=== PATIENT | female | born 1990 | race Caucasian/White ===

== ENCOUNTER 2025-01-17 14:10 | Emergency (ER) | payer OTHER, SELFPAY ==
[2025-01-17 14:11] VITALS: BP 126/76
--- NOTE | 2025-01-17 14:45 | ED.GENMED ---
Addendum entered and electronically signed by Rafael Munroe DO 01/17/25 18:22:
Patient was evaluated with resident physician. I obtained my own independent history and physical exam. I otherwise agree with his documentation as per the chart.
34-year-old female presents to the ER for treatment of severe left-sided flank pain which has has been ongoing for the past few days with associated dysuria and urinary frequency. She does have a prior history of urinary tract infections and kidney
stones, although she admittedly has not had any evaluation for kidney stones in the last 10 years. Patient denies any fevers or chills. She has been on Macrobid for the last 48 hours and states that her symptoms seem to improve, however had
recurrent pain today. She describes it to be sharp in her lower back and not necessarily associated with activity. No vomiting. Vital signs reviewed, patient is awake, alert, appears no acute distress, abdomen is soft and nontender, positive left
CVA tenderness, GCS is 15. I reviewed with patient all test results including relatively unremarkable urinalysis. Patient had declined CT imaging that have been discussed by resident physician and myself. She was amenable to ultrasound
evaluation-no evidence for acute hydronephrosis although she does have bilateral renal calculi. I discussed with her limitation of diagnosis without having CT to confirm or refute presence of distal ureteral stone, however given there is absence of
hydro nephrosis on the ultrasound this is somewhat reassuring. Additionally reassuring her blood count is normal, she is afebrile and appears overall well. I discussed with patient potential treatment plan including change of antibiotics to
antibiotic appropriate for pyelonephritis. I encourage patient to strain her urine to see if there is a small stone that may be related to her symptoms. I also encourage patient to establish care with local urology. Patient agrees with plan to
follow-up with her primary care physician. She expressed understanding of strict return precautions and had no questions prior to that department.
Original Note:
History of Present Illness
General
Chief Complaint: Back Pain
Source: patient
Time Seen by Provider: 01/17/25 14:25
History of Present Illness
History of Present Illness:
Patient is a 34-year-old female who presents to the emergency department with complaints of left lower back pain, with pain and burning during urination. She has a history of UTIs that occurred in 2022 and 2023 and she has a history of kidney
stones. She was in her normal state of health until last weekend Monday when she started to have burning sensation during urination with groin pain and she believes she started to have left sided flank pain that was starting to be noticed. During
that time she also noticed that her urine had a darker tinge to it but there was no cloudiness, y[place] blood, or foul odor. He reached out to a medical provider via telehealth and shared her symptoms but recalls that she may have forgotten to
mention that she was having flank pain. They prescribed her nitrofurantoin and she started to take the medication and her symptoms started to improve over the course of 2 days. Unfortunately, this morning when she woke up she was having sharp pain
in her left flank along with the recurrence of her previous UTI symptoms that she thought were improving. She has also been feeling nausea during the acute pain episodes. She denies any shortness of breath, chest tightness, or palpitations.
Past History
Past History
ED Past Medical History: Other ( kidney stones) and Other ( UTIs that occurred in 2022 and 2023 treated with nitrofurantoin)
ED Past Surgical History: None
Social History
Tobacco: Non-smoker
Alcohol: Occasional
Drug: None
Employment: Employed
Review of Systems
Review of Systems
Constitutional: Reports sleep disturbance ( left-sided flank pain and suprapubic pain disturbing sleep for over 24 hours) and night sweats
EENT: Reports no symptoms
Respiratory: Reports no symptoms
Cardiac: Reports no symptoms
ABD/GI: Reports no symptoms
: Reports no symptoms
Musculoskeletal: Reports no symptoms
Skin: Reports no symptoms
Neurological: Reports no symptoms
Endocrine: Reports no symptoms
Hematologic/Lymphatic: Reports no symptoms
Psychiatric: Reports anxiety
Phy Exam
General Physical Exam
General Presentation: well appearing and moderate distress
General age: appears stated age
General Skin: warm and dry
General Habitus: normal
General Mental: alert and anxious
General Hydration: appears well hydrated
Cardiovascular Exam
Cardiovascular Exam: regular rate/rhythm, no edema, no gallop, no JVD, no murmur and normal peripheral pulses
Pulmonary Exam
Pulmonary Exam: lungs clear, no respiratory distress, no rales, chest non tender, no crackles, no rhonchi, no stridor, no wheezing and no cough
Gastrointestinal Exam
Gastrointestinal Exam: normal bowel sounds, non tender, soft, no organomegaly, no pulsatile mass, non distended and cva tenderness ( left-sided)
Musculoskeletal Exam
Musculoskeletal Exam: full ROM
Skin Exam
Skin Exam: normal color, warm/dry, no rash and no petechia
Psychiatric Exam
Psychiatric Exam: normal mood/affect
Course
Orders/Labs/Results
Orders:
Orders
01/17/25 14:51
Urinalysis Reflex To Culture Urgent
Date Specimen was Collected: 01/17/25
Time Specimen was Collected: 14:50
Urine Microscopic Reflex Cult Urgent
01/17/25 14:53
Kidney & Bladder US [US Renal With Bladder] Urgent
Comment:
Reason For Exam: Flank pain with history of kidney stones
01/17/25 15:03
0.9% Sodium Chloride 1000 ml [Nss] 1,000 ml IV BOLUS
01/17/25 15:06
Test Result ONCE
01/17/25 15:18
Beta Hcg Serum Qualitative Screen [HCG, Serum Qualitative Screen] Urgent
Complete Blood Count/No Diff Urgent
Comprehensive Metabolic Panel Urgent
Abnormal Lab Results
01/17/25 01/17/25
14:51 15:18
MCH 32.0 H pg
(27.0-31.0)
Albumin 5.1 H g/dl
(3.5-5.0)
Urine Albumin (Reflex) 1+ A
(Neg - Trace)
01/17/25 15:18
01/17/25 15:18
Vital Signs
Initial and Last Documented VS:
Initial Vital Signs
Temp Pulse Resp BP Pulse Ox
97.7 F 95 16 126/76 98
01/17/25 14:11 01/17/25 14:11 01/17/25 14:11 01/17/25 14:11 01/17/25 14:11
Last Documented Vital Signs
Temp Pulse Resp BP Pulse Ox
98.8 F 84 16 108/77 99
01/17/25 15:21 01/17/25 17:27 01/17/25 14:11 01/17/25 17:27 01/17/25 17:27
*Pulse Oximetry
SaO2: 98
Oxygen Mode of Delivery: Room air
Patient hypoxic: no
*Critical Care Note
Total Time (30-74mins, 75-104mins- exclusive of procedures): Not Applicable
Update Note
Update Note:
Problem List:
Burning/pain with urination
left-sided CVA tenderness
history of kidney stones
Plan:
CBC and CMP ordered
urinalysis ordered
kidney and bladder ultrasound ordered because patient apprehensive about CT scans and radiation due to a family history of cancer
Differential Diagnoses:
pyelonephritis secondary to UTI
nephrolithiasis
hydroureter secondary to nephrolithiasis
Radiology:
- kidney and bladder ultrasound conducted on 01/17/2025:
EKG: Not applicable
Labs:
CBC unremarkable
CMP unremarkable
urine analysis unremarkable
Updates:
Initial UA is unremarkable along with CBC. Uncertain if there is an acute UTI occurring or if the UTI portion has been treated with residual pyelonephritis that we are not seeing any results for the urine analysis. Going to continue to move
forward with kidney and bladder ultrasound but will recommend that the patient receive a CT of the abdomen and pelvis to rule out any acute processes.
ED Attending Note
-
Portions of this chart may have been created with voice recognition software.� Occasional wrong word or��sound alike� substitutions may have occurred due to the inherent limitations of voice recognition software.
Discharge Plan
Departure
Referrals:
Tyler Crowell MD [Family Provider]
Interventions
Interventions:
*Risk Screen - Suicide Last Done: 01/17/25 14:11
*General Assessment Last Done: 01/17/25 14:11
Discharge Date and Time
Print Language: [id number]
[2025-01-17 15:02] LABS: Urine Character Clear (Clear)
[2025-01-17 15:11] LABS: Urine Red Blood Cell 0-2 /HPF (0-2)
[2025-01-17] MEDS: NSS 1000 IV (15:19)
[2025-01-17 15:21] VITALS: BP 112/74
[2025-01-17 15:44] LABS: Hematocrit 38.2 % (37.0-47.0); Hemoglobin 13.5 g/dL (12.0-16.0); Mean Corp Hgb Conc. 35.3 g/dL (33.0-37.0); Mean Corpuscular Volume 90.5 fL (81.0-99.0); Platelet Count 276 10^3/uL (130-400); Red Cell Dist. Width 11.9 % (11.5-14.5)
[2025-01-17 15:49] LABS: HCG, Serum Qualitative Screen Negative
[2025-01-17 15:57] LABS: ALT (SGPT) < 10 U/L (0-35); AST (SGOT) 18 U/L (14-36); Albumin 5.1 g/dl (3.5-5.0); Alkaline Phosphatase 53 U/L (38-126); Blood Urea Nitrogen 14 mg/dl (7-17); Calcium 9.7 mg/dl (8.4-10.2); Carbon Dioxide 25 mmol/L (22-30); Chloride 104 mmol/L (98-107); Glucose 94 mg/dl (70-99); Potassium 4.1 mmol/L (3.5-5.1); Sodium 138 mmol/L (135-145); Total Protein 8.0 g/dl (6.3-8.2); eGFR > 60.00
[2025-01-17 17:27] VITALS: BP 108/77
[2025-01-17] MEDS: CIPRO 500 MG PO (17:46)
== END 2025-01-17 17:52 | disposition home or self-care (01) ==
LOC: EMR 14:10
PROVIDERS: EMERGENCY PHYSICIAN Emergency Medicine; FAMILY PHYSICIAN Family Medicine
DX: M54.50 Low back pain, unspecified (principal); Z87.442 Personal history of urinary calculi; Z80.9 Family history of malignant neoplasm, unspecified; Z87.440 Personal history of urinary (tract) infections; Z87.441 Personal history of nephrotic syndrome
CPT/HCPCS: 99284; 96360; 76770; 80053; 81003; 81015; 84703; 85027; 87086